=== PATIENT | female | born 1945 | race Caucasian/White ===

== ENCOUNTER → 2019-01-12 | Outpatient (CLI) | payer OTHER | LOC: NEURO 08:07 | PROVIDERS: Psychiatry & Neurology Neuromuscular Medicine | DX: R55 Syncope and collapse (principal); M47.812 Spondylosis without myelopathy or radiculopathy, cervical region; Z86.73 Personal history of transient ischemic attack (TIA), and cerebral infarction without residual deficits ==

== ENCOUNTER → 2020-03-13 | Outpatient (CLI) | payer OTHER | LOC: RAD 13:15 | PROVIDERS: ATTEND Family Medicine | DX: M51.36 Other intervertebral disc degeneration, lumbar region (principal); M85.88 Other specified disorders of bone density and structure, other site; M76.9 Unspecified enthesopathy, lower limb, excluding foot; M54.41 Lumbago with sciatica, right side ==

== ENCOUNTER → 2021-03-09 | Outpatient (CLI) | payer OTHER | LOC: MRI 11:24 | PROVIDERS: ATTEND Family Medicine | DX: M51.36 Other intervertebral disc degeneration, lumbar region (principal); M48.061 Spinal stenosis, lumbar region without neurogenic claudication; M51.37 Other intervertebral disc degeneration, lumbosacral region; R20.2 Paresthesia of skin; M54.42 Lumbago with sciatica, left side ==